=== PATIENT | male | born 1995 | race Caucasian/White ===

== ENCOUNTER 2023-12-24 20:52 | Inpatient (IN) | payer OTHER, SELFPAY ==
[2023-12-24] MEDS ORDERED: Ondansetron PF 4 MG/2 ML Vial IVP PRN (21:31)
[2023-12-24] MEDS ORDERED: Ondansetron ODT 4 MG TAB PO PRN (21:31)
[2023-12-24] MEDS ORDERED: Acetaminophen 325 MG TAB PO PRN (21:31)
[2023-12-24] MEDS ORDERED: Acetaminophen 650 MG Suppository PR PRN (21:31)
[2023-12-24 22:06] LABS: #Basophils 0.05 10x3/uL (0.0-0.2); %Basophils 0.5 % (0.0-1.0); %Eosinophils 7.3 % (0.0-10.0); %Lymphocytes 18.9 % (21.0-51.0); %Neutrophils 65.8 % (42.0-75.0); Mean Corpuscular HGB CONC 33.3 g/dL (32.0-36.0); Mean Corpuscular Hemoglobin 29.4 pg (27.0-31.0); Mean Corpuscular Volume 88.2 fL (78.0-98.0); Mean Platelet Volume 9.4 fL (7.4-10.4); Platelet Count 282 10x3/uL (130-400); RBC Distribution Width 13.5 % (11.5-14.5); Red Blood Cell (RBC) Count 4.42 mill/uL (4.70-6.10)
[2023-12-24 22:40] VITALS: BMI 33.3
[2023-12-24] MEDS ORDERED: Morphine 4 MG/ML VIAL SLOW IVP PRN (22:47)
[2023-12-24 22:52] LABS: Anion Gap 15 mmol/L (10-20); BUN (Urea Nitrogen) 9 mg/dL (8.9-20.6); Calc. Creatinine Clearance 162 mL/min (70-130); Calcium 9.5 mg/dL (7.8-10.44); Carbon Dioxide 24 mmol/L (22-29); Chloride 105 mmol/L (98-107); Estimated GFR 112; Glucose 89 mg/dL (70-105); Potassium 3.7 mmol/L (3.5-5.1); Sodium 140 mmol/L (136-145)
[2023-12-25 00:14] LABS: Vancomycin, Random 6.9 ug/mL (See Comment)
[2023-12-25] MEDS: Vancomycin (BATCH) 1.5 GM in Premix 1 BAG IVPB SCH (05:43)
[2023-12-25] MEDS ORDERED: Vancomycin 1 GM in Premix 1 BAG IVPB SCH (09:00)
[2023-12-25] MEDS: Piperacillin/Tazobactam 3.375 GM in Sodium Chloride 0.9% 100 ML IVPB SCH (09:03)
[2023-12-25] MEDS: Famotidine 20 MG TAB PO SCH (09:04)
[2023-12-25] MEDS ORDERED: PROPOFOL 20 ML ONE ×2 (09:51→10:47)
[2023-12-25] MEDS ORDERED: fentaNYL PF 100 MCG/2 ML SYRINGE ONE (09:51)
[2023-12-25] MEDS ORDERED: Ondansetron PF 4 MG/2 ML Vial ONE (09:52)
[2023-12-25] MEDS ORDERED: Midazolam HCl 2 mg/2 ml Vial ONE (09:52)
[2023-12-25] MEDS ORDERED: Lidocaine 1% PF 5 ML VIAL ONE (09:52)
[2023-12-25 13:32] LABS: #Basophils 0.04 10x3/uL (0.0-0.2); %Basophils 0.4 % (0.0-1.0); %Eosinophils 7.2 % (0.0-10.0); %Lymphocytes 17.6 % (21.0-51.0); %Monocytes 5.9 % (0.0-10.0); %Neutrophils 68.5 % (42.0-75.0); Hematocrit 42.8 % (42.0-52.0); Hemoglobin 13.8 g/dL (14.0-18.0); Mean Corpuscular HGB CONC 32.2 g/dL (32.0-36.0); Mean Corpuscular Hemoglobin 29.1 pg (27.0-31.0); Mean Corpuscular Volume 90.1 fL (78.0-98.0); Mean Platelet Volume 9.6 fL (7.4-10.4); Platelet Count 269 10x3/uL (130-400); RBC Distribution Width 13.4 % (11.5-14.5); Red Blood Cell (RBC) Count 4.75 mill/uL (4.70-6.10)
[2023-12-25 13:51] LABS: Anion Gap 14 mmol/L (10-20); BUN (Urea Nitrogen) 10 mg/dL (8.9-20.6); Calc. Creatinine Clearance 165 mL/min (70-130); Calcium 9.7 mg/dL (7.8-10.44); Carbon Dioxide 23 mmol/L (22-29); Chloride 106 mmol/L (98-107); Estimated GFR 115; Glucose 77 mg/dL (70-105); Potassium 4.3 mmol/L (3.5-5.1); Sodium 139 mmol/L (136-145); Vancomycin, Random 13.2 ug/mL (See Comment)
[2023-12-25] MEDS: Vancomycin 1 GM in Premix 1 BAG IVPB SCH (15:33)
[2023-12-25 18:36] VITALS: BMI 33.3
[2023-12-25] MEDS: HYDROcodone/Acetaminophen 5/325 mg Tablet PO PRN (19:42)
[2023-12-26 06:36] LABS: #Basophils 0.04 10x3/uL (0.0-0.2); %Basophils 0.4 % (0.0-1.0); %Eosinophils 7.2 % (0.0-10.0); %Lymphocytes 18.3 % (21.0-51.0); %Monocytes 6.3 % (0.0-10.0); %Neutrophils 67.4 % (42.0-75.0); Hematocrit 41.9 % (42.0-52.0); Hemoglobin 13.9 g/dL (14.0-18.0); Mean Corpuscular HGB CONC 33.2 g/dL (32.0-36.0); Mean Corpuscular Volume 87.3 fL (78.0-98.0); Mean Platelet Volume 9.9 fL (7.4-10.4); Platelet Count 317 10x3/uL (130-400); RBC Distribution Width 13.6 % (11.5-14.5)
[2023-12-26 06:45] LABS: Vancomycin, Random 15.2 ug/mL (See Comment)
[2023-12-26 06:50] LABS: Anion Gap 14 mmol/L (10-20); BUN (Urea Nitrogen) 17 mg/dL (8.9-20.6); Calc. Creatinine Clearance 130 mL/min (70-130); Calcium 9.3 mg/dL (7.8-10.44); Carbon Dioxide 24 mmol/L (22-29); Chloride 104 mmol/L (98-107); Estimated GFR 86; Glucose 107 mg/dL (70-105); Potassium 4.5 mmol/L (3.5-5.1); Sodium 137 mmol/L (136-145)
[2023-12-26] MEDS: Vancomycin (BATCH) 1.25 GM in Premix 1 BAG IVPB SCH (19:39)
[2023-12-27 04:26] LABS: #Basophils 0.05 10x3/uL (0.0-0.2); %Basophils 0.6 % (0.0-1.0); %Eosinophils 6.7 % (0.0-10.0); %Lymphocytes 24.8 % (21.0-51.0); %Monocytes 9.1 % (0.0-10.0); %Neutrophils 58.2 % (42.0-75.0); Hematocrit 44.1 % (42.0-52.0); Hemoglobin 14.5 g/dL (14.0-18.0); Mean Corpuscular HGB CONC 32.9 g/dL (32.0-36.0); Mean Corpuscular Hemoglobin 28.7 pg (27.0-31.0); Mean Corpuscular Volume 87.2 fL (78.0-98.0); Mean Platelet Volume 9.7 fL (7.4-10.4); Platelet Count 325 10x3/uL (130-400); RBC Distribution Width 13.6 % (11.5-14.5); Red Blood Cell (RBC) Count 5.06 mill/uL (4.70-6.10)
[2023-12-27 04:43] LABS: Vancomycin, Random 13.6 ug/mL (See Comment)
[2023-12-27 04:45] LABS: Anion Gap 14 mmol/L (10-20); BUN (Urea Nitrogen) 15 mg/dL (8.9-20.6); Calc. Creatinine Clearance 119 mL/min (70-130); Calcium 9.6 mg/dL (7.8-10.44); Carbon Dioxide 25 mmol/L (22-29); Chloride 104 mmol/L (98-107); Estimated GFR 77; Glucose 95 mg/dL (70-105); Potassium 4.5 mmol/L (3.5-5.1); Sodium 138 mmol/L (136-145)
[2023-12-27 20:19] VITALS: BP 120/72; TEMP 98.3
== END 2023-12-27 20:00 | disposition home or self-care (01) | DRG 603 ==
LOC: MSONC 20:55
PROVIDERS: ADMIT Internal Medicine; ATTEND Internal Medicine
PROC: 0J9G0ZZ Drainage of Right Lower Arm Subcutaneous Tissue and Fascia, Open Approach (ICD-10-PCS; principal; 2023-12-25)
DX: L02.413 Cutaneous abscess of right upper limb (principal); L03.113 Cellulitis of right upper limb; Z98.890 Other specified postprocedural states; Z87.891 Personal history of nicotine dependence; Z79.899 Other long term (current) drug therapy; D72.829 Elevated white blood cell count, unspecified
CPT/HCPCS: 36415; 80048; 80202; 83605; 85025; 86141; 87070; 87077; 87186; 87205; 97139; J2250; J2405; J2543; J2704; J3370; J3370-JW; J3490